=== PATIENT | female | born 1995 | race African-American/Black ===

== ENCOUNTER 2024-05-07 12:17 | Emergency (ER) | payer MEDICAID, OTHER ==
[~2024-05-07] VITALS: Ht 172.7 cm; Wt 100.7 kg
[2024-05-07 12:28] VITALS: O2SAT 100
[2024-05-07 13:34] LABS: BASOPHILS % 0.5 % (0.0-2.0); EOSINOPHILS % 2.5 % (0.0-5.0); HEMATOCRIT. 37.7 % (36.0-48.0); HEMOGLOBIN. 12.1 g/dL (12.0-16.0); LYMPHOCYTES % 24.1 % (20.0-50.0); MEAN CORPUSCULAR HEMOGLOBIN 26.4 pg (28.0-32.0); MEAN CORPUSCULAR HGB CONC 31.9 g/dL (31.0-37.0); MEAN CORPUSCULAR VOLUME 82.5 fL (81.0-99.0); MEAN PLATELET VOLUME 9.2 fl (7.4-10.4); MONOCYTES % 8.4 % (2.0-8.0); NEUTROPHILS % 64.5 % (40.0-76.0); PLATELET 232 x1000/uL (130-400); RED BLOOD CELL COUNT 4.57 mill/uL (4.2-5.4); RED CELL DISTRIBUTION WIDTH 15.6 % (11.6-14.6)
[2024-05-07 13:43] LABS: CHLORIDE 107 mEq/L (98-107); SODIUM 139 mEq/L (136-145)
[2024-05-07 13:44] LABS: CALCIUM 9.3 mg/dL (8.7-10.4); CARBON DIOXIDE 28 mEq/L (21-32)
[2024-05-07 13:49] LABS: CREATININE 0.7 mg/dL (0.6-1.0); GLUCOSE 86 mg/dL (70-105); UREA NITROGEN BLOOD 11 mg/dL (9-23)
[2024-05-07 13:53] LABS: HCG SCREEN NEGATIVE
[2024-05-07 14:35] LABS: CLARITY URINE CLEAR (CLEAR); COLOR URINE YELLOW (YELLOW); GLUCOSE URINE NEGATIVE (NEGATIVE); KETONES URINE NEGATIVE (NEGATIVE); LEUKOCYTE ESTERASE URINE TRACE (NEGATIVE); NITRITE URINE NEGATIVE (NEGATIVE); OCCULT BLOOD URINE NEGATIVE (NEGATIVE); PROTEIN URINE NEGATIVE (NEGATIVE); SPECIFIC GRAVITY URINE 1.014 (1.005-1.030)
[2024-05-07 14:37] LABS: ALANINE AMINOTRANSFERASE 8 IU/L (10-49); ALBUMIN 4.5 g/dL (3.2-4.8); ASPARTATE AMINOTRANSFERASE 14 IU/L (<34); BILIRUBIN DIRECT 0.3 mg/dL (<=3.0); BILIRUBIN TOTAL 0.9 mg/dL (0.1-1.0); PROTEIN TOTAL 7.3 g/dL (6.0-8.3)
[2024-05-07 14:56] LABS: MUCUS URINE 1+ /lpf (< = 2+); SQUAMOUS EPITHELIAL CELL URINE 2+ /lpf (RARE/1+)
[2024-05-07 14:57] LABS: RBC URINE 0-2 /hpf (0-2); TRICHOMONAS URINE FEW; WBC URINE 0-2 /hpf (0-2)
[2024-05-07 14:58] LABS: BACTERIA URINE TRACE
[2024-05-07] MEDS ORDERED: METR-167 MT (15:07)
[2024-05-07] MEDS ORDERED: DOXY100C5 MT (15:26)
[2024-05-07] MEDS: CEFTRIAXONE SODIUM 500MG VIAL IM ONE (15:46)
[2024-05-07] MEDS: LIDOCAINE HCL 1% 20ML VIAL INFIL ONE (15:46)
[2024-05-07 15:49] VITALS: BP 122/71; PULSE 74; RESP 16; TEMP 98
[2024-05-10 13:06] LABS: CHLAMYDIA TRACHOMATIS NAA Negative (Negative); NEISSERIA GONORRHOEAE NAA Negative (Negative)
== END 2024-05-07 16:03 | disposition home or self-care (01) ==
LOC: ER 12:17
DX: A59.00 Urogenital trichomoniasis, unspecified (principal); R10.9 Unspecified abdominal pain; A59.9 Trichomoniasis, unspecified
CPT/HCPCS: 99285; 74176; 76705; 71045; 87491; 87591; 80076; 80048; 81003; 81025; 84703; 83690; 85025; 36415; 96372; J0696; J3490